=== PATIENT | male | born 1955 | race Caucasian/White ===

== ENCOUNTER 2022-03-26 13:38 | Emergency (ER) | payer MEDICARE, OTHER ==
[~2022-03-26] VITALS: Ht 180.3 cm; Wt 82.7 kg
[2022-03-26 13:45] VITALS: BP 139/77
[2022-03-26 14:52] LABS: Basophils # (auto) 0.1 10 ^3/uL (0-0.2); Eosinophils # (auto) 0.1 10 ^3/uL (0-0.8); Eosinophils % (auto) 1.2 % (0.0-7.0); Hematocrit 44.9 % (41.0-53.0); Hemoglobin 14.9 g/dL (13.5-17.5); Lymphocytes # (auto) 1.6 10 ^3/uL (0.4-5.4); Lymphocytes % (auto) 21.5 % (10.0-50.0); Mean Corpuscular Hemoglobin 31.8 pg (28.0-32.0); Mean Corpuscular Hgb Conc. 33.1 g/dL (32.0-36.0); Mean Corpuscular Volume 96.2 fL (80.0-100.0); Monocytes # (auto) 0.7 10 ^3/uL (0-1.3); Monocytes % (auto) 9.7 % (0.0-12.0); Neutrophils # (auto) 5.1 10 ^3/uL (1.6-8.6); Neutrophils % (auto) 66.6 % (37.0-80.0); Nucleated Red Blood Cells % 0.1 %; Red Blood Cells 4.67 10^6/uL (4.5-5.90); White Blood Cell 7.6 10^3/uL (4.4-10.8)
[2022-03-26 14:56] LABS: INR 1.05 (0.9-1.15); Partial Thromboplastin Time 29.7 sec (24.6-33.4)
[2022-03-26 15:19] LABS: Albumin 4.3 g/dL (3.4-5.0); BUN/Creatinine Ratio 18.3; Calcium 8.8 mg/dL (8.5-10.1); Potassium 4.2 mmol/L (3.5-5.1)
[2022-03-26 15:23] LABS: Bilirubin, Total 0.8 mg/dL (0.2-1.0); Total Protein 7.4 g/dL (6.4-8.2)
== END 2022-03-26 19:23 | disposition home or self-care (01) ==
LOC: ER 13:38
DX: R07.89 Other chest pain (principal); I50.9 Heart failure, unspecified; Z95.0 Presence of cardiac pacemaker; Z88.5 Allergy status to narcotic agent; Z88.8 Allergy status to other drugs, medicaments and biological substances
CPT/HCPCS: 36415; 71045; 80053; 84484; 85025; 85610; 85730; 93005